=== PATIENT | female | born 1940 | race Caucasian/White ===

== ENCOUNTER 2024-06-08 21:35 | Inpatient (IN) | payer OTHER, SELFPAY ==
[2024-06-08 19:06] VITALS: BP 160/67
[2024-06-08 19:07] VITALS: BP 160/67
[2024-06-08 19:36] LABS: % Basophils 0.3 % (0-2); % Eosinophils 0.8 % (0-6); % Immature Granulocytes 1.1 % (0-0.5); % Lymphocytes 17.4 % (20.5-51.1); % Monocytes 6.8 % (1.7-9.3); % Neutrophils 73.6 % (42.2-75.2); Absolute Eosinophils 0.1 10^3/uL (0-0.7); Absolute Immature Granulocytes 0.1 10^3/uL (0-0.05); Absolute Lymphocytes 1.1 10^3/uL (1.2-3.4); Absolute Monocytes 0.4 10^3/uL (0.1-0.6); Absolute Neutrophils 4.6 10^3/uL (1.4-6.5); Hematocrit 38.5 % (37.0-47.0); Mean Corp Hgb Conc. 33.8 g/dL (33.0-37.0); Mean Corpuscular Hgb 30.6 pg (27.0-31.0); Mean Corpuscular Volume 90.6 fL (81.0-99.0); Nucleated Red Blood Cells % 0 %; Platelet Count 396 10^3/uL (130-400); Red Blood Cell Count 4.25 10^6/uL (4.20-5.40); Red Cell Dist. Width 12.6 % (11.5-14.5); White Blood Cell Count 6.3 10^3/uL (4.8-10.8)
[2024-06-08] MEDS: TYLENOL 1000 MG PO (19:40)
[2024-06-08 19:45] LABS: INR 1.01; PT 13.8 Sec (11.4-14.6)
--- NOTE | 2024-06-08 19:45 | ED.GENMED ---
History of Present Illness
General
Chief Complaint: Fall
Time Seen by Provider: 06/08/24 19:04
History of Present Illness
History of Present Illness:
83-year-old female with prior history of stroke with chronic dysphagia, asthma, COPD presenting after a fall. Patient reports that she lost her footing prior to arrival and fell directly onto her right hip. Denies any prodromal syncopal symptoms
such as lightheadedness or dizziness. She denies head injury or loss of consciousness. She has not aspirin, otherwise no thinners. Denies additional acute medical complaint such as chest pain, difficulty breathing, abdominal pain.
Phy Exam
Physical Exam
Physical Exam:
General: Well-appearing, no clinical signs of dehydration, nontoxic and in no acute distress
HEENT: protecting airway
Neck: appears supple
CV: Normal heart rate, regular rhythm
Resp: No accessory muscle use, no increased work of breathing, lungs clear to auscultation bilaterally
Abd: Soft and non-distended, no tenderness to palpation
Extremities: Shortened and externally rotated right lower extremity. Distal sensation and pulses intact.
Neuro: alert, no focal neurologic deficit
: deferred
Rectal: deferred
Psych: Normal affect
Skin: Intact
Course
Orders/Labs/Results
Orders:
Orders
06/08/24 19:10
Acetaminophen [Tylenol] 1,000 mg PO NOW STA
Hip, Right 2-3 Views [CR Hip - RT w/wo Pel 2-3 Vw*] Urgent
Comment:
Reason For Exam: fall, deformity
Include a pelvis x-ray?: Yes
06/08/24 19:27
Complete Blood Count/With Diff Urgent
Comprehensive Metabolic Panel Urgent
Prothrombin Time Urgent
Abnormal Lab Results
06/08/24
19:27
Abs Immat Gran (auto) 0.1 H 10^3/uL
(0-0.05)
Absolute Lymphs (auto) 1.1 L 10^3/uL
(1.2-3.4)
Immature Gran % 1.1 H %
(0-0.5)
Lymphocytes % 17.4 L %
(20.5-51.1)
BUN 30 H mg/dl
(7-17)
Glucose 135 H mg/dl
(70-99)
06/08/24 19:27
06/08/24 19:27
Vital Signs
Initial and Last Documented VS:
Initial Vital Signs
Temp Pulse Resp BP Pulse Ox
98.7 F 85 19 160/67 98
06/08/24 19:06 06/08/24 19:06 06/08/24 19:06 06/08/24 19:06 06/08/24 19:06
Last Documented Vital Signs
Temp Pulse Resp BP Pulse Ox
98.7 F 78 17 160/67 97
06/08/24 19:06 06/08/24 19:45 06/08/24 19:45 06/08/24 19:07 06/08/24 19:45
MDM/Problems Addressed
MDM/Problems Addressed:
83-year-old female with history of stroke with chronic dysphagia presenting after a fall onto the right hip. Vital signs are significant for mild hypertension.
On exam patient is resting comfortably, however does have suspected deformity to the right lower extremity with shortened and externally rotated right hip. Range of motion limited secondary to pain. No neurovascular compromise. No additional
signs of trauma. Patient denying any head injury or loss of consciousness. Will screen with laboratory analysis and obtain x-ray imaging with suspicion for acute right hip fracture.
20:15 -x-ray confirms a right hip fracture. Orthopedics aware. Plan for admission for operative management. Patient remains hemodynamically stable.
*Critical Care Note
Total Time (30-74mins, 75-104mins- exclusive of procedures): Not Applicable
ED Attending Note
-
Portions of this chart may have been created with voice recognition software.� Occasional wrong word or��sound alike� substitutions may have occurred due to the inherent limitations of voice recognition software.
Discharge Plan
Departure
Prescriptions:
No Action
montelukast 10 mg Tablet
20 mg PO QPM
aspirin 81 mg Tablet
81 mg PO DAILY
losartan 100 mg Tablet
100 mg PO DAILY
fluticasone propionate [Flonase] 50 mcg/actuation [place],Suspension
2 spray INTRANASAL DAILY
Interventions
Interventions:
*Risk Screen - Suicide Last Done: 06/08/24 19:06
*General Assessment Last Done: 06/08/24 19:06
*Neglect/Abuse Screening Last Done: 06/08/24 19:06
*ED- Fall Risk Assessment Last Done: 06/08/24 19:06
*ED COVID-19 Vaccine History Last Done: 06/08/24 19:06
ED-Musculoskeletal Assessment Last Done: 06/08/24 19:17
ED- Neurological Assessment Last Done: 06/08/24 19:16
ED-Skin Assessment Last Done: 06/08/24 19:18
Discharge Date and Time
Print Language: MALAY
[2024-06-08 19:47] LABS: ALT (SGPT) 20 U/L (0-35); AST (SGOT) 27 U/L (14-36); Albumin 3.8 g/dl (3.5-5.0); Alkaline Phosphatase 48 U/L (38-126); Blood Urea Nitrogen 30 mg/dl (7-17); Calcium 9.6 mg/dl (8.4-10.2); Carbon Dioxide 27 mmol/L (22-30); Chloride 103 mmol/L (98-107); Estimated Creatinine Clearance 43 ml/min; Glucose 135 mg/dl (70-99); Potassium 3.9 mmol/L (3.5-5.1); Sodium 139 mmol/L (135-145); Total Bilirubin 0.4 mg/dl (0.2-1.3); Total Protein 6.8 g/dl (6.3-8.2); eGFR > 60.00
--- NOTE | 2024-06-08 20:32 | HPS.HSE ---
Family Physician
-
Family Physician:
Chief Complaint
-
Mechanical fall
History of Present Illness
Patient is an 83-year-old female with past medical history significant for hypertension, COPD, asthma and Hx CVA with chronic dysphagia who presented to [facility] ED for evaluation s/p mechanical fall. Patient reports she has residual right sided
weakness s/p CVA in January 2024. She was out to dinner with friends and when ambulating back to car she fell. Patient reports using a walker but when she goes out a friend normally assists her walking, today when she fell she was not receiving any
assistance. Patient denies any dizziness or palpitations. She denies head strike or loss of consciousness.
Medical History
Past Medical History
Past Medical History: Reports Other
Additional Past Medical History:
hypertension
COPD
asthma
Hx CVA with chronic dysphagia
Past Surgical History: Reports None
Social History
Tobacco: Non-smoker
Alcohol: Occasional
Drug: None
Living: Alone
Employment: Retired
Family History
Family History: Not pertinent
Allergies / Home Medications
Allergies reflects when Allergies were last updated in [employer].
Home Medications with original date entered in [employer]
Allergy/Medication List:
Allergies
Allergy/AdvReac Type Severity Reaction Status Date / Time
ciprofloxacin [From Cipro] Allergy Shortness Verified 06/08/24 19:15
of Breath
latex Allergy Rash Verified 06/08/24 19:15
Penicillins Allergy Shortness Verified 06/08/24 19:15
of Breath
Home Medications
aspirin 81 mg tablet 81 mg PO DAILY 06/08/24
fluticasone propionate 50 mcg/actuation nasal spray,suspension 2 spray intranasal DAILY 06/08/24
losartan 100 mg tablet 100 mg PO HS 06/08/24
montelukast 10 mg tablet 20 mg PO QPM 06/08/24
rosuvastatin 40 mg tablet 40 mg PO HS 06/08/24
Review of Systems
-
History Source: Patient
Constitutional: Reports No Symptoms
EENT: Reports No Symptoms
Respiratory: Reports No Symptoms
Cardiac: Reports No Symptoms
Abdomen/GI: Reports No Symptoms
: Reports No Symptoms
Musculoskeletal: Reports Joint Pain (right hip radiating downward towards knee)
Skin: Reports No Symptoms
Neurological: Reports No Symptoms
Endocrine: Reports No Symptoms
Hematologic/Lymphatic: Reports No Symptoms
Psych: Reports No Symptoms
Physical Exam
Vital Signs
Vital Signs
Temp Pulse Resp BP Pulse Ox
98.7 F 78 17 160/67 97
06/08/24 19:06 06/08/24 19:45 06/08/24 19:45 06/08/24 19:07 06/08/24 19:45
Physical Exam
General: Well Developed, Well Nourished, No Apparent Distress, Comfortable and Conversant
HEENT: NormoCephalic, Moist mucous membranes, Atraumatic, [place] Conjunctivae, Nose Appears Normal and Ears Appear Normal
Respiratory: Clear
Cardiac: S1/S2 and Regular Rhythm
Breast: Deferred by me
GI: Soft, Non Tender, Non Distended and Normal Bowel Sounds; No Organomegaly
Rectal: Deferred by Provider
Genito-urinary: Deferred by me
Musculoskeletal: No Clubbing, No Cyanosis, No Edema and Other (limited ROM to RLE, tender to palpation ); No Normal Gait & Station
Skin: Warm and IV/Catheter Site
Neuro: Awake, Alert, AO x 3 and Nonfocal/grossly intact
Psych: Calm and Intact Judgment/Insight
Laboratory Results
-
06/08/24 19:27
06/08/24 19:27
Laboratory Results
PT 13.8 Sec (11.4-14.6) 06/08/24 19:27
INR 1.01 06/08/24 19:27
Total Bilirubin 0.4 mg/dl (0.2-1.3) 06/08/24 19:27
AST 27 U/L (14-36) 06/08/24 19:27
ALT 20 U/L (0-35) 06/08/24 19:27
Alkaline Phosphatase 48 U/L (38-126) 06/08/24 19:27
Data Reviewed
-
Diagnostic Radiology: Report Reviewed by me
Lab Data: Labs Reviewed by me
Impression/Plan
-
IMPRESSION/PLAN:
#mechanical fall
R hip x-ray:
- Admit to med/surg
- Consult orthopedics
- pain regimen
- NPO at midnight for OR tomorrow
#hypertension
- continue losartan
#COPD
#asthma
- continue montelukast and Flonase
#Hx CVA with chronic dysphagia
- continue rosuvastatin and aspirin
Code status: DNR
DVT Prophylaxis: SCDs
[2024-06-08 21:00] VITALS: BP 135/88
--- NOTE | 2024-06-08 21:18 | W.PN.UPDATE ---
Update Note
Progress Note Update
This is an addendum to H&P written by PELLETISING EXTRUDER OPERATOR Rica Payne
I saw and examined the patient.
The PELLETISING EXTRUDER OPERATOR's note was reviewed and I agree with the note.
Comment:
Ms. Sharda Garnica is a 83 yo woman with hx CVA, asthma, COPD who presents post mechanical fall resulting in right hip pain.
Triage VS: T 98.7, P 85, RR 19, BP 160/67, SpO2 98%
On exam patient is awake, alert, in no distress; LE without swelling; RLE rotated
LABS: WBC 6.3, Hg 13, PLT 396, Na 139, K+ 3.9, Cl 103, CO2 27, BUN 30, Cr 0.7, Glucose 135
Right HIp Fracture
-admit to med/surg with ortho consulting
-NPO after MN for OR
-pain control
-[place] nathan-op risk score = 1.7%; benefits of surgery outweigh risks, patient is medically optimized for surgery
-PT/OT post-op
Essential HTN
-DEPUTY INSURANCE COMMISSIONER Losartan
HLD - DEPUTY INSURANCE COMMISSIONER statin
DVT PPx SCD
Remainder of plan per PELLETISING EXTRUDER OPERATOR note
[2024-06-08 22:30] VITALS: BP 167/87
[2024-06-08 22:32] VITALS: BMI 18.5
[2024-06-08] MEDS: COZAAR 100 MG PO (22:41)
[2024-06-08] MEDS: NSS 1000 IV (22:42)
[2024-06-08] MEDS: ULTRAM 50 MG PO (22:42)
[2024-06-08] MEDS: CRESTOR 20 MG PO (23:11)
[2024-06-09] VITALS (11 sets, daily range): BP systolic 140–178; BP diastolic 59–85
[2024-06-09] MEDS: ACULAR 0.5% EYE DROPS 1 DROP BOTH EYES ×4 (01:02→21:53)
[2024-06-09] MEDS: ALPHAGAN 0.2% EYE DROPS 1 DROP BOTH EYES ×4 (01:02→21:53)
[2024-06-09] MEDS: TYLENOL 650 MG PO (02:50)
--- NOTE | 2024-06-09 03:11 | PTCARENOTE ---
Pt arrived 2229 from ED. Assist X2 chain puller from stretcher. VSS. IVF infusing. pain 11/18 (see MAR). oriented to room and call arboleda. bed locked and in the lowest position
[2024-06-09] MEDS: ULTRAM 50 MG PO (04:44)
--- NOTE | 2024-06-09 06:25 | W.PN.UPDATE ---
Update Note
Progress Note Update
Full orthopedic consult dictated:
Dx: Right hip displaced femoral neck fracture
Plan: Right hip hemiarthroplasty for later today. NPO and [facility] resource conservation specialist to OR (PCN h/o SOB).
[2024-06-09 07:24] LABS: Hematocrit 37.7 % (37.0-47.0); Hemoglobin 12.8 g/dL (12.0-16.0); Mean Corpuscular Hgb 30.6 pg (27.0-31.0); Mean Corpuscular Volume 90.2 fL (81.0-99.0); Mean Platelet Volume 9.4 fL (7.4-10.4); Platelet Count 376 10^3/uL (130-400); Red Blood Cell Count 4.18 10^6/uL (4.20-5.40); Red Cell Dist. Width 12.5 % (11.5-14.5); White Blood Cell Count 7.7 10^3/uL (4.8-10.8)
[2024-06-09 07:50] LABS: Blood Urea Nitrogen 24 mg/dl (7-17); Calcium 9.4 mg/dl (8.4-10.2); Carbon Dioxide 26 mmol/L (22-30); Chloride 105 mmol/L (98-107); Estimated Creatinine Clearance 49 ml/min; Glucose 113 mg/dl (70-99); Potassium 4.2 mmol/L (3.5-5.1); Sodium 140 mmol/L (135-145); eGFR > 60.00
[2024-06-09] MEDS: ASPIR LOW (ENTERIC COATED) 81 MG PO (07:52)
[2024-06-09] MEDS: DILAUDID 0.5 MG IV ×2 (07:52→12:02)
--- NOTE | 2024-06-09 09:47 | CM ---
Addendum entered by Kristian Servin 06/09/24 14:41:
CM spoke to pt's daughter Nuris and she stated that she is planning to bring her mother to [place] at the end of summer/fall. Pt's daughter agrees with a plan to get the pt to [facility] or a preferred SNF. Per daughter, she feels her mother will
need longer time for recovery.
Original Note:
CM following re: discharge planning.
Reviewed pt's chart, met with pt.
Pt is an 83 year old female, admitted with primary dx of Right hip displaced femoral neck fracture. OR today for Right hip hemiarthroplasty. PMH includes: hypertension, COPD, asthma and Hx CVA with chronic dysphagia.
Pt reports she lives alone in a condo. no steps to enter, has 3 children, 8 grandchildren and they live in [place]. Pt reports she ambulates with a walker, fell at home. Pt reports she had a stroke 3 months ago, was at [facility] and was
went to [facility]. Pt is aware she will go for a surgery today and she will need a short term rehab. Pt stated she was at [facility] and she preferred [facility].
Alternative to acute rehab options discussed. Pt preferred [facility] or [facility] if [facility] will not accept her or insurance will not approve.
A referral to both [facility] and preferred SNFs will be made after PT, OT evaluations.
PCP: Al Oden
Pharmacy: [facility]
Pt will need PT, OT, PM&R consults.
D/C plan: Plan A: [facility]. Plan B: preferred SNF: [facility] or [facility].
CM will follwo with discharge plan updates as hospuitalization progreesses.
--- NOTE | 2024-06-09 09:52 | W.PN.HOSP.TC ---
Today's Communication/Plan
-
see A/P
Assessment / Plan
Assessment / Plan
83-year-old female with past medical history significant for hypertension, COPD, asthma, and Hx CVA with chronic R sided weakness; who presented to ED for evaluation of mechanical fall. Patient reports she has residual right sided weakness s/p
CVA in January 2024. She was out to dinner with friends and when ambulating back to car she fell. Patient reported using a walker but when she goes out a friend normally assists her walking. On DOA when she fell she was not receiving any
assistance. Patient denies any dizziness or palpitations. She denies head strike or loss of consciousness.
A/P:
# mechanical fall with Right subcapital fracture.
for Right hip hemiarthroplasty today 06/09 by ortho
benefits of surgery outweigh risks, patient is medically optimized for surgery
Cont pain control
# hypertension
continue losartan with holding parameter
# COPD
# asthma
continue montelukast and Flonase
# Hx CVA with chronic R sided weakness
continue rosuvastatin and aspirin
Pt denies to dysphagia at baseline
Code status: DNR
DVT Prophylaxis: SCDs
DW RN
Anticipated Discharge: 24 - 48 hours
Subjective/Interval History
-
Date of Service: June 09, 2024
Objective Data
-
Labs:
Laboratory Results
06/09/24 06/09/24
05:54 05:55
WBC 7.7
Hgb 12.8
Hct 37.7
Plt Count 376
Sodium 140
Potassium 4.2
Chloride 105
Carbon Dioxide 26
BUN 24 H
Creatinine 0.6
Glucose 113 H
Calcium 9.4
Vital Signs:
Vital Signs
Temp Pulse Resp BP Pulse Ox
36.6 C 72 16 159/79 97
06/09/24 07:05 06/09/24 07:05 06/09/24 07:05 06/09/24 07:05 06/09/24 07:50
I&O
06/08/24 06/09/24 06/10/24
06:59 06:59 06:59
Intake Total 840 / 840
Balance 840 / 840
Review of Systems
-
History Source: Patient
All other systems: Reviewed and negative
Physical Exam
-
General: Well Developed, Well Nourished, No Apparent Distress, Comfortable and Conversant; Negative Respiratory Distress
HEENT: Normocephalic, Atraumatic, Nose Appears Normal and Ears Appear Normal; Negative Oxygen
Respiratory: Clear to Auscultation and Non Labored Respirations; Negative Accessory Resp Muscle Use
Cardiac: Regular Rhythm and S1/S2
GI: Soft, Nontender, Nondistended and Normal Bowel Sounds
Skin: Warm and Dry
Neuro: Awake, Alert, Oriented and AO x 3
Psych: Calm and Intact Judgement/Insight
Data Reviewed
-
Diagnostic Radiology: Report Reviewed by me
Labs: Labs Reviewed by me
[2024-06-09] MEDS: NSS 1000 IV (11:38)
--- NOTE | 2024-06-09 19:49 | W.IMMPOSTOP ---
Surgical Immed Post Op Note
-
Primary Surgeon: Shorty Ritchie MD
Assisting Surgeon: Humble Cuevas MD; Bala Paula PA-C
Pre-op Diagnosis: right femoral neck fracture
Post-op Diagnosis: right femoral neck fracture
Procedure Performed: right hip hemiarthroplasty
Anesthesia Type: general
Specimen / Cultures: none
Estimated Blood Loss: 50mL
Complications: none apparent
Operative Findings: right femoral neck fracture
Implants: [employer] stem size 11, size 42 regular offset endoprosthetic head
Operative dictation #: [id number]
[2024-06-09] MEDS: SINGULAIR PO (21:00)
[2024-06-09] MEDS: LOW STRENGTH ASPIRIN 81 MG PO (21:52)
[2024-06-09] MEDS: CRESTOR 20 MG PO (22:46)
[2024-06-09] MEDS: COZAAR 100 MG PO (22:46)
[2024-06-10] VITALS (9 sets, daily range): BP systolic 109–155; BP diastolic 57–84; PULSE 116–122; O2SAT 96
--- NOTE | 2024-06-10 00:12 | PTCARENOTE ---
Pt arrived 2030 from PACU. Pt only oriented to self, confused and restless. VSS. mepilex dressing to R hip dressing c/d/i. Pts sister at bed side. bed locked and in lowest position. bed alarm placed for safety. care ongoing.
[2024-06-10] MEDS: NSS 1000 IV (05:20)
[2024-06-10] MEDS: VANCOCIN 200 IV (05:24)
[2024-06-10] MEDS: ULTRAM 50 MG PO ×2 (05:43→16:09)
--- NOTE | 2024-06-10 05:46 | W.PN.ORTHO ---
Today's Communication / Plan
-
83-year-old female postoperative day 1 right hip hemiarthroplasty with Dr. Ritchie
Weightbearing as tolerated with assistive devices as indicated
PT/OT/discharge planning
Posterior hip precautions x 6 weeks
DVT PPx ASA x 30 days unless recommended otherwise per primary
Pain control with current regimen
Diet Per primary
Orthopedic surgery will continue to follow
Assessment
.
Distal Motor Intact: Yes
Dressing:
Clean, dry and intact.
Assessment:
Postoperative imaging shows status post right hip cemented bipolar endoprosthesis without evidence of hardware or osseous complication
Plan
.
Surgery / Date: R hip hemiarthroplasty 06/09/24
DVT Prophylaxis: Aspirin
Activity:
Out of bed.
PT/OT
Subjective
.
.:
Patient resting comfortably.
Vital Signs and Labs
.
Vital Signs and Labs:
Temp Pulse Resp BP Pulse Ox
98.2 F 100 17 141/75 94
06/10/24 03:04 06/10/24 03:04 06/10/24 03:04 06/10/24 03:04 06/10/24 03:04
PT 13.8 Sec (11.4-14.6) 06/08/24 19:27
INR 1.01 06/08/24 19:27
[2024-06-10] MEDS: ALPHAGAN 0.2% EYE DROPS 1 DROP BOTH EYES ×3 (08:31→21:00)
[2024-06-10] MEDS: ACULAR 0.5% EYE DROPS 1 DROP BOTH EYES ×3 (08:31→21:00)
[2024-06-10] MEDS: LOW STRENGTH ASPIRIN 81 MG PO ×2 (08:31→20:48)
[2024-06-10 08:38] LABS: Hematocrit 34.2 % (37.0-47.0); Hemoglobin 11.6 g/dL (12.0-16.0); Mean Corp Hgb Conc. 33.9 g/dL (33.0-37.0); Mean Corpuscular Hgb 30.2 pg (27.0-31.0); Mean Corpuscular Volume 89.1 fL (81.0-99.0); Mean Platelet Volume 9.6 fL (7.4-10.4); Platelet Count 360 10^3/uL (130-400); Red Blood Cell Count 3.84 10^6/uL (4.20-5.40); Red Cell Dist. Width 12.6 % (11.5-14.5); White Blood Cell Count 13.8 10^3/uL (4.8-10.8)
--- NOTE | 2024-06-10 10:36 | W.PN.HOSP.TC ---
Today's Communication/Plan
-
see A/P
Assessment / Plan
Assessment / Plan
83-year-old female with past medical history significant for hypertension, COPD, asthma, and Hx CVA with chronic R sided weakness; who presented to ED for evaluation of mechanical fall. Patient reports she has residual right sided weakness s/p
CVA in January 2024. She was out to dinner with friends and when ambulating back to car she fell. Patient reported using a walker but when she goes out a friend normally assists her walking. On DOA when she fell she was not receiving any
assistance. Patient denies any dizziness or palpitations. She denies head strike or loss of consciousness.
A/P:
# mechanical fall with Right subcapital fracture.
s/p Right hip hemiarthroplasty 06/09 by ortho
suspect reactive leucocytosis post op, monitor WBC
Cont pain control
ASA BID per ortho for DVT ppx
PT OT PMR CS post op
# hypertension
continue losartan with holding parameter
# COPD
# asthma
continue montelukast and Flonase
# Hx CVA with chronic R sided weakness
continue rosuvastatin and aspirin
Pt denies to dysphagia at baseline
# possible arrhythmia
place on tele
check EKG
consult Card if arrhythmia confirmed
Code status: DNR
DVT Prophylaxis: ASA BID per ortho
DW RN
updated daughter on the phone
total time 51 min
Anticipated Discharge: 24 - 48 hours
Subjective/Interval History
-
Date of Service: June 10, 2024
Objective Data
-
Labs:
Laboratory Results
06/10/24
07:59
WBC 13.8 H
Hgb 11.6 L
Hct 34.2 L
Plt Count 360
Sodium Pending
Potassium Pending
Chloride Pending
Carbon Dioxide Pending
BUN Pending
Creatinine Pending
Glucose Pending
Calcium Pending
Vital Signs:
Vital Signs
Temp Pulse Resp BP Pulse Ox
37.4 C 127 17 155/84 93
06/10/24 07:15 06/10/24 07:15 06/10/24 07:15 06/10/24 07:15 06/10/24 07:15
I&O
06/09/24 06/10/24 06/11/24
06:59 06:59 06:59
Intake Total 840 / 840 1440 / 1440
Output Total 750 / 750
Balance 840 / 840 690 / 690
[2024-06-10 11:02] LABS: Blood Urea Nitrogen 16 mg/dl (7-17); Calcium 8.4 mg/dl (8.4-10.2); Carbon Dioxide 20 mmol/L (22-30); Chloride 105 mmol/L (98-107); Estimated Creatinine Clearance 49 ml/min; Glucose 116 mg/dl (70-99); Magnesium 1.6 mg/dl (1.6-2.3); Potassium 4.3 mmol/L (3.5-5.1); Sodium 136 mmol/L (135-145); eGFR > 60.00
--- NOTE | 2024-06-10 12:33 | CM ---
Addendum entered by Kristian Servin 06/10/24 14:50:
PT and OT evaluations noted - SNF level of care recommended.
Pt is aware, expressed her agreement and pt agrees with going to [facility] for a short term rehab. IMM reviewed, placed on chart, pt has a copy.
CM initiated an auth with [facility] for potential discharge tomorrow, spoke to [facility] family independence case manager Emilie, pt is approved for SNF level of care at [facility] for 5 initial days starting tomorrow 06/11/24 till 06/15/24 with LCD and NRD 06/15/24. Auth:
[id number]
Auth information forwarded to [facility] director trade.
Ambulance auth for Acute care ambulance obtained: [id number] Transportation form completed and left on the chart.
Pt will need COVID test prior to discharge.
[facility] nursing report: [phone]
Discharge instructions fax: [phone]
D/C plan: [facility] probably tomorrow 06/11/24.
Original Note:
CM following re: discharge planning.
Reviewed pt's chart, met with pt and spoke to pt's daughter Nuris over the phone to update on discharge plan progress.
Pt is POD # 1 right hip hemiarthroplasty, continue supportive care.
PT and OT will evaluate the pt to determine a level of care at discharge.
Per daughter, her mother will not be able to tolerate 3 hours of therapy per day and daughter feels that her mother will need a longer time to recovery. Pt's daughter asked SNF level of care instead of acute rehab and daughter preferred [facility]
[place] [facility]. Pt is aware and expressed her agreement.
[facility] counselor is aware of change the plan.
CM spoke to [facility] admission director and she stated that they will have a bed available on Thursday or Thursday and pt will be accepted for admission when medically stable.
[facility]
Accepting Physician: Cruz Caamcho [id number]
Pt will need an auth from [facility]
D/C plan: [facility] SNF most likely tomorrow 06/11/24.
CM will follow to assist pt with discharge to [facility].
--- NOTE | 2024-06-10 14:25 | PTCARENOTE ---
dynamap reading HR of 120-160s. Patient placed on telemetry and EKG obtained, both show NSR-ST, HR 80-low 100s.
[2024-06-10] MEDS: SINGULAIR 10 MG PO (16:09)
[2024-06-10] MEDS: MAGNESIUM SULFATE 50 IV (16:10)
[2024-06-10] MEDS: CRESTOR 20 MG PO (21:00)
[2024-06-10] MEDS: COZAAR 100 MG PO (21:01)
[2024-06-11] VITALS (7 sets, daily range): BP systolic 108–152; BP diastolic 54–83
[2024-06-11] MEDS: TYLENOL 650 MG PO ×2 (01:28→09:38)
[2024-06-11 08:22] LABS: Hematocrit 32.3 % (37.0-47.0); Hemoglobin 10.9 g/dL (12.0-16.0); Mean Corp Hgb Conc. 33.7 g/dL (33.0-37.0); Mean Corpuscular Hgb 30.6 pg (27.0-31.0); Mean Corpuscular Volume 90.7 fL (81.0-99.0); Mean Platelet Volume 9.9 fL (7.4-10.4); Platelet Count 326 10^3/uL (130-400); Red Blood Cell Count 3.56 10^6/uL (4.20-5.40); Red Cell Dist. Width 12.8 % (11.5-14.5); White Blood Cell Count 9.4 10^3/uL (4.8-10.8)
[2024-06-11 08:57] LABS: Blood Urea Nitrogen 22 mg/dl (7-17); Calcium 8.1 mg/dl (8.4-10.2); Carbon Dioxide 25 mmol/L (22-30); Chloride 103 mmol/L (98-107); Estimated Creatinine Clearance 42 ml/min; Glucose 86 mg/dl (70-99); Sodium 138 mmol/L (135-145); eGFR > 60.00
--- NOTE | 2024-06-11 09:02 | W.PN.ORTHO ---
Today's Communication / Plan
-
83-year-old female postoperative day 2 right hip hemiarthroplasty with Dr. Ritchie
Weightbearing as tolerated with assistive devices as indicated
PT/OT/discharge planning
Posterior hip precautions x 6 weeks
DVT PPx ASA x 30 days unless recommended otherwise per primary
Pain control with current regimen
Diet Per primary
Orthopedic surgery will follow peripherally- DC info UTD
Assessment
.
Distal Motor Intact: Yes
Dressing:
Clean, dry and intact.
Plan
.
Surgery / Date: R hip hemiarthroplasty 06/09/24
Activity:
Out of bed.
PT/OT
Subjective
.
.:
Patient resting comfortably.
Vital Signs and Labs
.
Vital Signs and Labs:
Lab Results
06/11/24 06:26
06/11/24 06:26
Temp Pulse Resp BP Pulse Ox
99.4 F 96 22 126/58 100
06/11/24 07:00 06/11/24 07:00 06/11/24 07:00 06/11/24 07:00 06/11/24 07:00
PT 13.8 Sec (11.4-14.6) 06/08/24 19:27
INR 1.01 06/08/24 19:27
[2024-06-11] MEDS: LOW STRENGTH ASPIRIN 81 MG PO ×2 (09:20→21:26)
[2024-06-11] MEDS: ACULAR 0.5% EYE DROPS 1 DROP BOTH EYES ×3 (09:21→21:40)
[2024-06-11] MEDS: ALPHAGAN 0.2% EYE DROPS 1 DROP BOTH EYES ×3 (09:21→21:36)
--- NOTE | 2024-06-11 09:34 | W.PN.HOSP.TC ---
Today's Communication/Plan
-
Check CXR and give fluid bolus.
Assessment / Plan
Assessment / Plan
83-year-old female with past medical history significant for hypertension, COPD, asthma, and Hx CVA with chronic R sided weakness; who presented to ED for evaluation of mechanical fall. Patient reports she has residual right sided weakness s/p
CVA in January 2024. She was out to dinner with friends and when ambulating back to car she fell. Patient reported using a walker but when she goes out a friend normally assists her walking. On DOA when she fell she was not receiving any
assistance. Patient denies any dizziness or palpitations. She denies head strike or loss of consciousness. She was admitted for ortho surgery.
A/P:
1. mechanical fall with Right subcapital fracture.
s/p Right hip hemiarthroplasty 06/09 by ortho
suspect reactive leucocytosis post op, monitor WBC
Cont pain control
ASA BID per ortho for DVT ppx
PT OT PMR CS post op
Now has had elevated temp and tachycardia - likely benign post op fever
Check CXR two view
Give 500 cc saline
tylenol prn
2. Benign hypertension
continue losartan with holding parameter
3. COPD / asthma
continue montelukast and Flonase
4. Hx CVA with chronic R sided weakness
continue rosuvastatin and aspirin
Pt denies to dysphagia at baseline
5. possible arrhythmia - tachy overnight
placed on tele
checked EKG
consult Card if arrhythmia confirmed after fluids given and fever resolved, she appears dry.
Code status: DNR
DVT Prophylaxis: ASA BID per ortho
DW RN
updated daughter on the phone
total time 51 min
Anticipated Discharge: 24 - 48 hours
Subjective/Interval History
-
Date of Service: June 11, 2024
Had elevated temp overnight and tachycardia.
Objective Data
-
Labs:
Laboratory Results
06/11/24
06:26
WBC 9.4
Hgb 10.9 L
Hct 32.3 L
Plt Count 326
Sodium 138
Potassium 4.0
Chloride 103
Carbon Dioxide 25
BUN 22 H
Creatinine 0.7
Glucose 86
Calcium 8.1 L
Vital Signs:
Vital Signs
Temp Pulse Resp BP Pulse Ox
99.4 F 96 22 126/58 100
06/11/24 07:00 06/11/24 07:00 06/11/24 07:00 06/11/24 07:00 06/11/24 07:00
I&O
06/10/24 06/11/24 06/12/24
06:59 06:59 06:59
Intake Total 1440 / 1440 600 / 600
Output Total 750 / 750 400 / 400
Balance 690 / 690 200 / 200
Review of Systems
-
Unable to obtain full review of systems at this time due to: Other (difficult speech from stroke.)
History Source: Patient
Physical Exam
-
General: Well Developed, Well Nourished, No Apparent Distress, Comfortable and Appears Chronically Ill
HEENT: Nose Appears Normal and Ears Appear Normal
Respiratory: Clear to Auscultation
Cardiac: Regular Rhythm and S1/S2
GI: Soft, Nontender and Nondistended
Musculoskeletal: No Clubbing, No Cyanosis and No Edema
Skin: Warm and Dry
Neuro: Awake and Alert
Psych: Calm
Data Reviewed
-
Labs: Labs Reviewed by me
--- NOTE | 2024-06-11 09:57 | CM ---
Patient seen at bedside, Patient physician requested patient transfer tomorrow instead of today, CM left for Liaison at [facility], spoke with Chiquita on the floor and she confirmed that delay was accepted. CM updated patient daughter Nuris and
physician aware. Patient COVID test pending. Per chart review; pt is approved for SNF level of care at [facility] SNF for 5 initial days starting tomorrow 06/11/24 till 06/15/24 with LCD and NRD 06/15/24. Auth: [id number]. Ambulance auth for Acute
care ambulance obtained: [id number] Transportation forms on chart per chart review. CM will continue to follow for discharge planning needs.
[facility] nursing report: [phone]
Discharge instructions fax: [phone]
[2024-06-11] MEDS: ProAIR HFA INHALER 2 PUFF INH ×2 (10:01→17:49)
[2024-06-11] MEDS: NSS 250 IV (10:03)
[2024-06-11] MEDS: ULTRAM 50 MG PO (10:16)
--- NOTE | 2024-06-11 13:06 | PTOTSP ---
Speech therapy
Presentation: Patient was oriented and able to follow commands. Patient's speech appeared to be dysarthric and possibly aphasic during conversation. Patient's breathing appeared to be labored at baseline.
Patient stated she eats a reg/ thin liquid diet at home.
Swallowing function: Patient was observed with several presentations of ice chips, tsp thins, straw sips of thins, tsp of puree, and bites of regular consistency solids in which patient appeared to tolerate as she did not exhibit any overt clinical
s/sx of aspiration or difficulty with mastication. Patient demonstrated 1 instance of a dry cough in the absence of PO which may be correlated to her baseline COPD and asthma dx. Of note, patient's breathing appeared to be labored during the
session. RN and respiratory notified.
LOCKER ROOM ATTENDANT observed RN administer medications crushed in puree which patient appeared to tolerate.
Given the above, recommend trial of regular consistency solids and thin liquids at this time.
Recommendations:
1) Continuation of reg/ thin liquids
2) Aspiration precautions
3) Medications as tolerated
4) Consideration of communication evaluation
Plan: LOCKER ROOM ATTENDANT will continue to follow to ensure tolerance; pending hospitalization.
--- NOTE | 2024-06-11 14:30 | PTCARENOTE ---
Past last straight cath'd at 23:00 last night. Repeat bladder scans < 300. Unsure if bladder scan accurate as patient has been unable to void for more than 12 hours. Straight cath'd for 200mL.
[2024-06-11] MEDS: SINGULAIR 10 MG PO (18:06)
[2024-06-11] MEDS: COZAAR 100 MG PO (21:25)
[2024-06-11] MEDS: CRESTOR 20 MG PO (21:26)
[2024-06-12 03:19] VITALS: BP 171/87
[2024-06-12 06:17] LABS: Hematocrit 31.3 % (37.0-47.0); Hemoglobin 10.7 g/dL (12.0-16.0); Mean Corp Hgb Conc. 34.2 g/dL (33.0-37.0); Mean Corpuscular Hgb 30.3 pg (27.0-31.0); Mean Corpuscular Volume 88.7 fL (81.0-99.0); Mean Platelet Volume 9.9 fL (7.4-10.4); Platelet Count 361 10^3/uL (130-400); Red Blood Cell Count 3.53 10^6/uL (4.20-5.40); Red Cell Dist. Width 12.5 % (11.5-14.5); White Blood Cell Count 10.8 10^3/uL (4.8-10.8)
[2024-06-12 06:45] LABS: Blood Urea Nitrogen 21 mg/dl (7-17); Carbon Dioxide 23 mmol/L (22-30); Chloride 104 mmol/L (98-107); Estimated Creatinine Clearance 49 ml/min; Glucose 95 mg/dl (70-99); Potassium 3.9 mmol/L (3.5-5.1); Sodium 137 mmol/L (135-145); eGFR > 60.00
[2024-06-12] MEDS: ProAIR HFA INHALER 2 PUFF INH (07:08)
[2024-06-12 07:10] VITALS: BP 157/79
[2024-06-12] MEDS: LOW STRENGTH ASPIRIN 81 MG PO (07:35)
[2024-06-12] MEDS: ALPHAGAN 0.2% EYE DROPS 1 DROP BOTH EYES (07:35)
[2024-06-12] MEDS: ACULAR 0.5% EYE DROPS 1 DROP BOTH EYES (07:35)
[2024-06-12] MEDS: ULTRAM 50 MG PO (07:38)
[2024-06-12 11:09] VITALS: BP 154/77
--- NOTE | 2024-06-12 11:58 | CM ---
Addendum entered by Krystal Carrera 06/12/24 12:05:
CM reviewed IMM with patient daughter and updated verbally and form on chart. CM will continue to follow for discharge plan.
Addendum entered by Krystal Carrera 06/12/24 12:03:
[facility] nursing report: [phone]
Discharge instructions fax: [phone]
Original Note:
Patient seen at bedside 2 south. Patient for transfer to [facility] today. COVID test is negative and patient is approved at SNF level of care. Per prior chart review; SNF level of care at [facility] SNF for 5 initial days starting tomorrow
06/11/24 till 06/15/24 with LCD and NRD 06/15/24. Auth: [id number]. Ambulance auth for Acute care ambulance obtained: [id number]. CM spoke with patient daughter Nuris and reviewed IMM. CM will continue to follow for discharge planning needs.
Plan; [facility]
--- NOTE | 2024-06-12 12:02 | W.PN.HOSP.TC ---
Today's Communication/Plan
-
discharge today
Assessment / Plan
Assessment / Plan
Hospital course
83-year-old female with past medical history significant for:
hypertension,
COPD,
asthma,
and Hx CVA with chronic R sided weakness;
who presented to ED for evaluation of mechanical fall. Patient reported she has residual right sided weakness s/p CVA in January 2024. She was out to dinner with friends and when ambulating back to car she fell. Patient reported using a walker
but when she goes out a friend normally assists her walking. On DOA when she fell she was not receiving any assistance. Patient denied any dizziness or palpitations. She denies head strike or loss of consciousness. She was admitted for ortho surgery.
A/P:
1. mechanical fall with Right subcapital fracture.
s/p Right hip hemiarthroplasty 06/09 by ortho
suspect reactive leucocytosis post op, WBC at day of discharge wnl
Will be discharged for ongoing recovery in acute rehab
Cont pain control
ASA BID per ortho for DVT ppx
PT OT PMR CS post op
She did have one episode of elevated temp and tachycardia - likely benign post op fever
Checked CXR two view - no obvious PNA
Given 500 cc saline
tylenol prn
Episode resolved.
2. Benign hypertension
continue losartan with holding parameter during rehab.
3. COPD / asthma
continue montelukast and Flonase during rehab.
4. Hx CVA with chronic R sided weakness
continue rosuvastatin and aspirin
Pt denies to dysphagia at baseline
5. possible arrhythmia - had tachycardia when temp was elevated.
placed on tele - no afib seen.
checked EKG
Code status: DNR
DVT Prophylaxis: ASA BID per ortho
updated daughter on the phone with discharge plan. Family agreed to plan.
total time 51 min
Anticipated Discharge: Today
Subjective/Interval History
-
Date of Service: June 12, 2024
Appears clearer today. Sitting on a chair.
Objective Data
-
Labs:
Laboratory Results
06/12/24
04:29
WBC 10.8
Hgb 10.7 L
Hct 31.3 L
Plt Count 361
Sodium 137
Potassium 3.9
Chloride 104
Carbon Dioxide 23
BUN 21 H
Creatinine 0.6
Glucose 95
Calcium 8.0 L
Vital Signs:
Vital Signs
Temp Pulse Resp BP Pulse Ox
98.0 F 102 18 154/77 98
06/12/24 11:09 06/12/24 11:09 06/12/24 11:09 06/12/24 11:09 06/12/24 11:09
I&O
06/11/24 06/12/24 06/13/24
06:59 06:59 06:59
Intake Total 600 / 600 240 / 240
Output Total 400 / 400 200 / 200
Balance 200 / 200 40 / 40
Review of Systems
-
Unable to obtain full review of systems at this time due to: Language Barrier (s/p stroke)
Physical Exam
-
General: Well Developed, Well Nourished, No Apparent Distress and Appears Chronically Ill
HEENT: Nose Appears Normal and Ears Appear Normal
Respiratory: Clear to Auscultation
Cardiac: Regular Rhythm and S1/S2
GI: Soft
Musculoskeletal: No Clubbing and No Cyanosis
Skin: Warm and Dry
Neuro: Awake and Alert
Psych: Calm
Data Reviewed
-
Labs: Labs Reviewed by me
--- NOTE | 2024-06-12 12:07 | W.DCSUMMARY ---
Discharge Summary
Discharge Data
Date of Admission: 06/08/24
Date of Discharge: 06/12/24
Total time spent discharging patient (in min): 51
-
Pending Results: No
Hospital Course
Hospital course
83-year-old female with past medical history significant for:
hypertension,
COPD,
asthma,
and Hx CVA with chronic R sided weakness;
who presented to ED for evaluation of mechanical fall. Patient reported she has residual right sided weakness s/p CVA in January 2024. She was out to dinner with friends and when ambulating back to car she fell. Patient reported using a walker
but when she goes out a friend normally assists her walking. On DOA when she fell she was not receiving any assistance. Patient denied any dizziness or palpitations. She denies head strike or loss of consciousness. She was admitted for ortho surgery.
A/P:
1. mechanical fall with Right subcapital fracture.
s/p Right hip hemiarthroplasty 06/09 by ortho
suspect reactive leucocytosis post op, WBC at day of discharge wnl
Will be discharged for ongoing recovery in acute rehab
Cont pain control
ASA BID per ortho for DVT ppx
PT OT PMR CS post op
She did have one episode of elevated temp and tachycardia - likely benign post op fever
Checked CXR two view - no obvious PNA
Given 500 cc saline
tylenol prn
Episode resolved.
2. Benign hypertension
continue losartan with holding parameter during rehab.
3. COPD / asthma
continue montelukast and Flonase during rehab.
4. Hx CVA with chronic R sided weakness
continue rosuvastatin and aspirin
Pt denies to dysphagia at baseline
5. possible arrhythmia - had tachycardia when temp was elevated.
placed on tele - no afib seen.
checked EKG
Code status: DNR
DVT Prophylaxis: ASA BID per ortho
updated daughter on the phone with discharge plan. Family agreed to plan.
total time 51 min
Discharge Plan
-
Patient Disposition: Correction/SNF
Discharge Diagnosis/Procedures: Femur fracture
Diet: As tolerated
Activity: As tolerated and With Walker
Additional Activity: posterior hip precautions x6 weeks
Driving Restrictions: Not until seen by your Dr
Bathing Restrictions: OK to Shower
Referrals:
Al Oden MD [Family Provider] -
Shorty Ritchie MD [Active] - (follow-up in 2 weeks for a wound check in the office- if discharged to a SNF/ARF, may do wound check there with dressing down at 2 weeks and suture/staple removal. May then follow-up between 4-6 weeks from date of
surgery)
Prescriptions:
New
acetaminophen 325 mg Tablet
650 mg PO Q4HPRN PRN (Reason: mild pain/CORTÉS/temp> 100.4F) Qty: 30 0RF
Continued
montelukast 10 mg Tablet
20 mg PO QPM
aspirin 81 mg Tablet
81 mg PO DAILY
losartan 100 mg Tablet
100 mg PO HS
fluticasone propionate [Flonase] 50 mcg/actuation [place],Suspension
2 spray INTRANASAL DAILY
rosuvastatin 40 mg Tablet
40 mg PO HS
albuterol sulfate 90 mcg/actuation Hfa Aerosol Inhaler
1 inh INHALATION ONCE
albuterol sulfate 90 mcg/actuation Hfa Aerosol Inhaler
2 puff INHALATION QID PRN (Reason: sob)
ketorolac 0.4 % Drops
1 drp OPHTHALMIC (EYE) TID
No Action
brimonidine 0.2 % Drops
1 drp OPHTHALMIC (EYE) TID
Discharge Orders:
Discharge Patient (As Directed); Ordered 06/12/24
Ordered By: Terrence Rebolledo
Discharge Date and Time
Print Language: GUAMANIAN
[2024-06-12 13:27] LABS: COVID-19 Antigen Negative (Negative)
[2024-06-12 15:00] VITALS: BP 164/86
--- NOTE | 2024-06-12 15:11 | W.DCSUMMARY ---
Discharge Summary
Discharge Data
Date of Admission: 06/08/24
Date of Discharge: 06/12/24
Total time spent discharging patient (in min): 51
-
Pending Results: No
Hospital Course
Hospital course
83-year-old female with past medical history significant for:
hypertension,
COPD,
asthma,
and Hx CVA with chronic R sided weakness;
who presented to ED for evaluation of mechanical fall. Patient reported she has residual right sided weakness s/p CVA in January 2024. She was out to dinner with friends and when ambulating back to car she fell. Patient reported using a walker
but when she goes out a friend normally assists her walking. On DOA when she fell she was not receiving any assistance. Patient denied any dizziness or palpitations. She denies head strike or loss of consciousness. She was admitted for ortho surgery.
A/P:
1. mechanical fall with Right subcapital fracture.
s/p Right hip hemiarthroplasty 06/09 by ortho
suspect reactive leucocytosis post op, WBC at day of discharge wnl
Will be discharged for ongoing recovery in acute rehab
Cont pain control
ASA BID per ortho for DVT ppx
PT OT PMR CS post op
She did have one episode of elevated temp and tachycardia - likely benign post op fever
Checked CXR two view - no obvious PNA
Given 500 cc saline
tylenol prn
Episode resolved.
2. Benign hypertension
continue losartan with holding parameter during rehab.
3. COPD / asthma
continue montelukast and Flonase during rehab.
4. Hx CVA with chronic R sided weakness
continue rosuvastatin and aspirin
Pt denies to dysphagia at baseline
5. possible arrhythmia - had tachycardia when temp was elevated.
placed on tele - no afib seen.
checked EKG
Code status: DNR
DVT Prophylaxis: ASA BID per ortho
updated daughter on the phone with discharge plan. Family agreed to plan.
total time 51 min
Discharge Plan
-
Patient Disposition: Snf/SNF
Discharge Diagnosis/Procedures: Femur fracture
Condition: Fair
Diet: As tolerated
Activity: As tolerated and With Walker
Additional Activity: posterior hip precautions x6 weeks
Driving Restrictions: Not until seen by your Dr
Bathing Restrictions: OK to Shower
Referrals:
Al Oden MD [Family Provider] -
Shorty Ritchie MD [Active] - (follow-up in 2 weeks for a wound check in the office- if discharged to a SNF/[facility], may do wound check there with dressing down at 2 weeks and suture/staple removal. May then follow-up between 4-6 weeks from date of
surgery)
Prescriptions:
New
acetaminophen 325 mg Tablet
650 mg PO Q4HPRN PRN (Reason: mild pain/CORTÉS/temp> 100.4F) Qty: 30 0RF
Continued
montelukast 10 mg Tablet
20 mg PO QPM
aspirin 81 mg Tablet
81 mg PO DAILY
losartan 100 mg Tablet
100 mg PO HS
fluticasone propionate [Flonase] 50 mcg/actuation [place],Suspension
2 spray INTRANASAL DAILY
rosuvastatin 40 mg Tablet
40 mg PO HS
brimonidine 0.2 % Drops
1 drp OPHTHALMIC (EYE) TID
albuterol sulfate 90 mcg/actuation Hfa Aerosol Inhaler
1 inh INHALATION ONCE
albuterol sulfate 90 mcg/actuation Hfa Aerosol Inhaler
2 puff INHALATION QID PRN (Reason: sob)
ketorolac 0.4 % Drops
1 drp OPHTHALMIC (EYE) TID
Discharge Orders:
Discharge Patient (As Directed); Ordered 06/12/24
Ordered By: Terrence Rebolledo
Discharge Date and Time
Print Language: INDONESIAN
== END 2024-06-12 17:45 | DRG 522 ==
LOC: 2 SOUTH 21:35
PROVIDERS: Internal Medicine; Nurse Practitioner Family; ADMITTING PHYSICIAN Student in an Organized Health Care Education/Training Program; ATTENDING PHYSICIAN Internal Medicine; CONSULT PHYSICIAN Student in an Organized Health Care Education/Training Program; EMERGENCY PHYSICIAN Student in an Organized Health Care Education/Training Program; FAMILY PHYSICIAN Internal Medicine
PROC: 0SRR0J9 Replacement of Right Hip Joint, Femoral Surface with Synthetic Substitute, Cemented, Open Approach (ICD-10-PCS; 2024-06-09)
DX: S72.011A Unspecified intracapsular fracture of right femur, initial encounter for closed fracture (principal); I69.351 Hemiplegia and hemiparesis following cerebral infarction affecting right dominant side; W01.0XXA Fall on same level from slipping, tripping and stumbling without subsequent striking against object, initial encounter; I10 Essential (primary) hypertension; J44.89 Other specified chronic obstructive pulmonary disease; R50.82 Postprocedural fever; Z66 Do not resuscitate; I69.391 Dysphagia following cerebral infarction; I69.322 Dysarthria following cerebral infarction
CPT/HCPCS: 71046; 73502; 80048; 80053; 83735; 85025; 85027; 85610; 86850; 86900; 86901; 87811; 92610; 93005; 94640; 97163; 97167; 97530; 99285; C1713; C1776